=== PATIENT | male | born 1960 | race Caucasian/White ===

== ENCOUNTER 2020-10-20 19:34 | Inpatient (IN) | payer MEDICAID ==
[~2020-10-20] VITALS: Ht 172.7 cm; Wt 56.7 kg
[~2020-10-20 19:34] MED LIST: ALBU0.5N2 IN; ASPI1TAB19 PO; FLUT250M2 IN; TIOTCAP IN
[2020-10-20 20:33] LABS: Eosinophils # (auto) 0.1 10 ^3/uL (0-0.8); Hemoglobin 9.1 g/dL (13.5-17.5); White Blood Cell 9.5 10^3/uL (4.4-10.8)
[2020-10-20 20:35] LABS: Basophils # (auto) 0 10 ^3/uL (0-0.2); Basophils % (auto) 0.3 % (0.0-2.0); Eosinophils % (auto) 0.6 % (0.0-7.0); Hematocrit 25.8 % (41.0-53.0); Lymphocytes # (auto) 0.5 10 ^3/uL (0.4-5.4); Lymphocytes % (auto) 5.1 % (10.0-50.0); Mean Corpuscular Hemoglobin 35.9 pg (28.0-32.0); Mean Corpuscular Hgb Conc. 35.1 g/dL (32.0-36.0); Mean Corpuscular Volume 102.2 fL (80.0-100.0); Monocytes # (auto) 1.6 10 ^3/uL (0-1.3); Monocytes % (auto) 17.2 % (0.0-12.0); Neutrophils # (auto) 7.3 10 ^3/uL (1.6-8.6); Neutrophils % (auto) 76.8 % (37.0-80.0); Nucleated Red Blood Cells % 0.2 %; Red Blood Cells 2.53 10^6/uL (4.5-5.90); Red Cell Distribution Width 18.2 % (11.8-14.3)
[2020-10-20 20:49] LABS: Albumin 3.2 g/dL (3.4-5.0); Calcium 8.4 mg/dL (8.5-10.1)
[2020-10-20 20:51] LABS: INR 2.29 (0.9-1.15); Partial Thromboplastin Time 33.6 sec (23.0-31.2)
[2020-10-20 20:52] LABS: Bilirubin, Total 8.4 mg/dL (0.2-1.0); Total Protein 7.4 g/dL (6.4-8.2)
[2020-10-20 21:04] LABS: Potassium 2.1 mmol/L (3.5-5.1)
[2020-10-20] MEDS ORDERED: D5W/SOD CHL 0.9%/KCL 40MEQ 1,000 ML IV ONE (21:15)
[2020-10-20] MEDS ORDERED: POTASSIUM EFFERVESENT TAB 25 MEQ PO ONE ×2 (21:15→22:45)
[2020-10-20] MEDS ORDERED: IOHEXOL 350 MG/ML 100ML IJ ONE (21:24)
[2020-10-20] MEDS: POTASSIUM CHL 20MEQ/100ML 100 ML IV SCH (23:25)
[2020-10-21] VITALS (8 sets, daily range): BP systolic 96–117; BP diastolic 57–71
[2020-10-21] MEDS: POTASSIUM CHL 20MEQ/100ML 100 ML IV SCH (01:51)
[2020-10-21] MEDS ORDERED: MORPHINE SULF INJ 2 MG/ML SYRINGE 1ML IV PRN (02:45)
[2020-10-21] MEDS ORDERED: NITROGLYCERIN 0.4 MG SL TAB SL PRN (02:45)
[2020-10-21] MEDS ORDERED: ONDANSETRON HCL 4 MG/2 ML VIAL IV PRN (02:45)
[2020-10-21 03:00] LABS: Urine Bacteria NONE SEEN /hpf (None Seen); Urine Blood Negative /uL (Negative); Urine Specific Gravity 1.022 (1.001-1.035); Urine WBC 1 /hpf (0 - 3)
[2020-10-21 03:11] LABS: Calcium 7.7 mg/dL (8.5-10.1)
[2020-10-21 03:14] LABS: BUN/Creatinine Ratio 13.6
[2020-10-21 03:19] LABS: Potassium 2.8 mmol/L (3.5-5.1)
[2020-10-21] MEDS: PANTOPRAZOLE 40 MG TAB PO SCH (10:44)
[2020-10-21] MEDS: LACTULOSE 20Gm/30ML SOLN PO SCH (10:44)
[2020-10-21] MEDS ORDERED: ALBUTEROL SULF 2.5 MG/0.5ML(0.5%) NEB SOLN NEB PRN (13:45)
[2020-10-21] MEDS ORDERED: POTASSIUM EFFERVESENT TAB 25 MEQ PO ONE (13:45)
[2020-10-21] MEDS ORDERED: RIVAROXABAN 15 MG TAB PO SCH (14:30)
[2020-10-21] MEDS: RIVAROXABAN 20 MG TAB PO SCH (15:23)
[2020-10-21] MEDS ORDERED: ALBU108A5 IN (15:31)
[2020-10-21] MEDS: Glucerna Carbsteady SHAKE Chocolate 8oz PO SCH (17:56)
[2020-10-21] MEDS ORDERED: ASPI-498 PO (17:58)
[2020-10-21] MEDS ORDERED: Ensure HIGH Protein Chocolate 8oz Bottle PO SCH (18:00)
[2020-10-21 18:48] LABS: Hemoglobin 7.6 g/dL (13.5-17.5)
[2020-10-21 18:51] LABS: Hematocrit 21.7 % (41.0-53.0); Mean Corpuscular Hgb Conc. 35.2 g/dL (32.0-36.0); Red Blood Cells 2.13 10^6/uL (4.5-5.90); Red Cell Distribution Width 18.5 % (11.8-14.3); White Blood Cell 8.1 10^3/uL (4.4-10.8)
[2020-10-21 18:53] LABS: Basophils % (manual) 0 (0.0-2.0); Blast Cells 0; Metamyelocytes % 0; Myelocytes % 0; Promyelocytes % 0; Reactive Lymphocytes 0
[2020-10-21 19:04] LABS: BUN/Creatinine Ratio 8.2; Calcium 8.8 mg/dL (8.5-10.1); Potassium 3.2 mmol/L (3.5-5.1)
[2020-10-21 19:27] LABS: Band Neutrophils % (manual) 5; Eosinophils % (manual) 2 (0-7); Lymphocytes % (manual) 15 (10.0-50.0); Monocytes % (manual) 13 (0-12)
[2020-10-22 05:00] VITALS: BP 110/67
[2020-10-22] MEDS ORDERED: LOPERAMIDE HCL 2 MG CAP PO PRN (07:00)
[2020-10-22 07:22] LABS: Basophils # (auto) 0.1 10 ^3/uL (0-0.2); Eosinophils # (auto) 0.1 10 ^3/uL (0-0.8); White Blood Cell 7.5 10^3/uL (4.4-10.8)
[2020-10-22 07:25] LABS: Basophils % (auto) 1.8 % (0.0-2.0); Eosinophils % (auto) 1.9 % (0.0-7.0); Hematocrit 22.6 % (41.0-53.0); Hemoglobin 8.1 g/dL (13.5-17.5); Lymphocytes % (auto) 12.7 % (10.0-50.0); Mean Corpuscular Hemoglobin 36.8 pg (28.0-32.0); Mean Corpuscular Hgb Conc. 35.7 g/dL (32.0-36.0); Mean Corpuscular Volume 102.9 fL (80.0-100.0); Monocytes # (auto) 1.3 10 ^3/uL (0-1.3); Monocytes % (auto) 17.8 % (0.0-12.0); Neutrophils % (auto) 65.8 % (37.0-80.0); Nucleated Red Blood Cells % 0.3 %; Red Cell Distribution Width 18.8 % (11.8-14.3)
[2020-10-22 07:35] LABS: INR 3.23 (0.9-1.15)
[2020-10-22 07:48] LABS: Albumin 2.6 g/dL (3.4-5.0); BUN/Creatinine Ratio 10.7; Bilirubin, Total 7.9 mg/dL (0.2-1.0); Calcium 8.5 mg/dL (8.5-10.1); Total Protein 6.6 g/dL (6.4-8.2)
[2020-10-22 07:51] LABS: Potassium 2.7 mmol/L (3.5-5.1)
[2020-10-22] MEDS: Glucerna Carbsteady SHAKE Chocolate 8oz PO SCH ×3 (08:00→18:00)
[2020-10-22 09:01] VITALS: BP 97/55
[2020-10-22] MEDS: RIVAROXABAN 20 MG TAB PO SCH (09:41)
[2020-10-22] MEDS: PANTOPRAZOLE 40 MG TAB PO SCH (09:41)
[2020-10-22] MEDS: LACTULOSE 20Gm/30ML SOLN PO SCH (09:42)
[2020-10-22] MEDS ORDERED: POTASSIUM CHL 20 Meq TABLET PO ONE (11:00)
[2020-10-22] MEDS ORDERED: POTASSIUM EFFERVESENT TAB 25 MEQ PO ONE (11:00)
[2020-10-22 13:16] VITALS: BP 94/55
[2020-10-22 16:51] VITALS: BP 98/51
[2020-10-22 20:00] VITALS: BP 99/63
[2020-10-22 22:00] VITALS: BP 99/63
[2020-10-23 05:00] VITALS: BP 106/61
[2020-10-23] MEDS: Glucerna Carbsteady SHAKE Chocolate 8oz PO SCH ×3 (09:00→18:00)
[2020-10-23 09:13] LABS: Hepatitis B Surface Antibody Negative
[2020-10-23 09:18] LABS: Hepatitis B Surface Antibody Negative
[2020-10-23 09:28] VITALS: BP 97/52
[2020-10-23 09:41] LABS: Hepatitis A Total Antibody Negative
[2020-10-23] MEDS: LACTULOSE 20Gm/30ML SOLN PO SCH (10:00)
[2020-10-23 10:51] LABS: Hepatitis B Core Total AB Negative; Hepatitis B Surface Antigen Negative (Negative); Hepatitis C Antibody Negative (Negative)
[2020-10-23 10:52] LABS: Hepatitis B Surface Antigen Negative (Negative)
[2020-10-23 10:56] LABS: Calcium 9.1 mg/dL (8.5-10.1); Potassium 3.6 mmol/L (3.5-5.1)
[2020-10-23 10:58] LABS: BUN/Creatinine Ratio 8.9
[2020-10-23] MEDS: PANTOPRAZOLE 40 MG TAB PO SCH (13:33)
[2020-10-23 16:52] VITALS: BP 95/61
[2020-10-23 22:00] VITALS: BP 99/54
[2020-10-23] MEDS: metroNIDAZOLE 500 MG TAB PO SCH (22:49)
[2020-10-24] MEDS: VANCOMYCIN HCL 125MG/5ML ORAL SOL PO SCH ×5 (00:22→23:56)
[2020-10-24 05:00] VITALS: BP 98/55
[2020-10-24] MEDS: metroNIDAZOLE 500 MG TAB PO SCH ×3 (06:00→21:29)
[2020-10-24 06:41] LABS: Basophils # (auto) 0.1 10 ^3/uL (0-0.2); Eosinophils # (auto) 0.2 10 ^3/uL (0-0.8); Nucleated Red Blood Cells % 0.1 %; White Blood Cell 9.6 10^3/uL (4.4-10.8)
[2020-10-24 06:43] LABS: Basophils % (auto) 0.9 % (0.0-2.0); Eosinophils % (auto) 1.6 % (0.0-7.0); Hematocrit 21.5 % (41.0-53.0); Hemoglobin 7.7 g/dL (13.5-17.5); Lymphocytes % (auto) 10.9 % (10.0-50.0); Mean Corpuscular Volume 102.8 fL (80.0-100.0); Monocytes # (auto) 1.4 10 ^3/uL (0-1.3); Monocytes % (auto) 14.5 % (0.0-12.0); Neutrophils # (auto) 6.9 10 ^3/uL (1.6-8.6); Neutrophils % (auto) 72.1 % (37.0-80.0); Red Blood Cells 2.09 10^6/uL (4.5-5.90)
[2020-10-24 06:46] LABS: Red Cell Distribution Width 20.7 % (11.8-14.3)
[2020-10-24 07:03] LABS: INR 2.42 (0.9-1.15); Partial Thromboplastin Time 44.5 sec (23.0-31.2)
[2020-10-24 07:28] LABS: Potassium 3.7 mmol/L (3.5-5.1)
[2020-10-24 07:42] LABS: BUN/Creatinine Ratio 12.2; Calcium 8.6 mg/dL (8.5-10.1)
[2020-10-24] MEDS: Glucerna Carbsteady SHAKE Chocolate 8oz PO SCH ×3 (08:00→18:00)
[2020-10-24 09:00] VITALS: BP 114/51
[2020-10-24] MEDS ORDERED: LIDOCAINE 2%HCL (LOCAL ANESTH.) INJ 20ML MDV ONE (14:24)
[2020-10-24] MEDS ORDERED: IODIXANOL 320MG/ML 100ML BTL IV ONE (14:24)
[2020-10-24 16:58] VITALS: BP 98/60
[2020-10-24] MEDS: PANTOPRAZOLE 40 MG TAB PO SCH (18:20)
[2020-10-24 20:23] VITALS: BP 98/60
[2020-10-24 22:00] VITALS: BP 100/57
[2020-10-25 05:00] VITALS: BP 94/59
[2020-10-25] MEDS: VANCOMYCIN HCL 125MG/5ML ORAL SOL PO SCH ×4 (05:39→23:41)
[2020-10-25] MEDS: metroNIDAZOLE 500 MG TAB PO SCH ×3 (05:40→21:55)
[2020-10-25] MEDS: Glucerna Carbsteady SHAKE Chocolate 8oz PO SCH ×3 (08:30→17:51)
[2020-10-25 09:00] VITALS: BP 100/58
[2020-10-25] MEDS: PANTOPRAZOLE 40 MG TAB PO SCH (09:09)
[2020-10-25 12:26] LABS: Basophils # (auto) 0.1 10 ^3/uL (0-0.2); Basophils % (auto) 0.6 % (0.0-2.0); Eosinophils # (auto) 0.2 10 ^3/uL (0-0.8); Eosinophils % (auto) 1.3 % (0.0-7.0); Hemoglobin 8.1 g/dL (13.5-17.5); Lymphocytes # (auto) 1.2 10 ^3/uL (0.4-5.4); Lymphocytes % (auto) 9.9 % (10.0-50.0); Mean Corpuscular Hemoglobin 35.8 pg (28.0-32.0); Mean Corpuscular Hgb Conc. 33.8 g/dL (32.0-36.0); Mean Corpuscular Volume 105.7 fL (80.0-100.0); Monocytes # (auto) 1.5 10 ^3/uL (0-1.3); Monocytes % (auto) 12.6 % (0.0-12.0); Neutrophils # (auto) 9.2 10 ^3/uL (1.6-8.6); Neutrophils % (auto) 75.6 % (37.0-80.0); Nucleated Red Blood Cells % 0.1 %; Red Blood Cells 2.27 10^6/uL (4.5-5.90); Red Cell Distribution Width 22.4 % (11.8-14.3); White Blood Cell 12.2 10^3/uL (4.4-10.8)
[2020-10-25] MEDS ORDERED: PHYTONADIONE(VitK) ORAL Susp 10mg/10ml(1mg/ml) PO ONE (12:30)
[2020-10-25 12:54] LABS: BUN/Creatinine Ratio 13.5; Calcium 8.2 mg/dL (8.5-10.1)
[2020-10-25 13:00] VITALS: BP 107/65
[2020-10-25] MEDS ORDERED: POTASSIUM CHL 20 Meq TABLET PO ONE (15:00)
[2020-10-25 16:42] VITALS: BP 100/56
[2020-10-25 22:00] VITALS: BP 93/48
[2020-10-26 05:00] VITALS: BP 90/55
[2020-10-26] MEDS: VANCOMYCIN HCL 125MG/5ML ORAL SOL PO SCH ×4 (05:42→23:32)
[2020-10-26] MEDS: metroNIDAZOLE 500 MG TAB PO SCH ×3 (05:43→22:19)
[2020-10-26 07:01] LABS: Eosinophils # (auto) 0.1 10 ^3/uL (0-0.8)
[2020-10-26 07:04] LABS: Basophils # (auto) 0.2 10 ^3/uL (0-0.2); Basophils % (auto) 1.3 % (0.0-2.0); Eosinophils % (auto) 0.7 % (0.0-7.0); Hematocrit 23.7 % (41.0-53.0); Hemoglobin 8.4 g/dL (13.5-17.5); Lymphocytes # (auto) 2.3 10 ^3/uL (0.4-5.4); Lymphocytes % (auto) 18.7 % (10.0-50.0); Mean Corpuscular Hemoglobin 37.5 pg (28.0-32.0); Mean Corpuscular Hgb Conc. 35.5 g/dL (32.0-36.0); Mean Corpuscular Volume 105.7 fL (80.0-100.0); Monocytes # (auto) 1.5 10 ^3/uL (0-1.3); Monocytes % (auto) 11.8 % (0.0-12.0); Neutrophils # (auto) 8.4 10 ^3/uL (1.6-8.6); Neutrophils % (auto) 67.5 % (37.0-80.0); Nucleated Red Blood Cells % 0.1 %; Red Blood Cells 2.24 10^6/uL (4.5-5.90); White Blood Cell 12.4 10^3/uL (4.4-10.8)
[2020-10-26 07:20] LABS: BUN/Creatinine Ratio 12.5; Calcium 8.4 mg/dL (8.5-10.1)
[2020-10-26 07:30] LABS: Red Cell Distribution Width 22.3 % (11.8-14.3)
[2020-10-26] MEDS: Glucerna Carbsteady SHAKE Chocolate 8oz PO SCH ×3 (08:00→18:23)
[2020-10-26 09:00] VITALS: BP 101/62
[2020-10-26] MEDS: PANTOPRAZOLE 40 MG TAB PO SCH (10:00)
[2020-10-26 13:00] VITALS: BP 99/58
[2020-10-26] MEDS ORDERED: OMNIPAQUE ORAL SOLN 500ml 12mg/ml PO ONE (16:45)
[2020-10-26] MEDS ORDERED: IOHEXOL 300 MG/ML 100ML BOTTLE IJ ONE (16:46)
[2020-10-26 17:00] VITALS: BP 101/56
[2020-10-26 22:00] VITALS: BP 109/65
[2020-10-27 05:30] VITALS: BP 125/67
[2020-10-27 05:56] LABS: Hematocrit 19.2 % (41.0-53.0); Mean Corpuscular Hemoglobin 37.1 pg (28.0-32.0); Mean Corpuscular Hgb Conc. 35.3 g/dL (32.0-36.0); Mean Corpuscular Volume 105.1 fL (80.0-100.0); Red Blood Cells 1.83 10^6/uL (4.5-5.90)
[2020-10-27 06:13] LABS: Red Cell Distribution Width 22.1 % (11.8-14.3)
[2020-10-27 06:14] LABS: Hemoglobin 6.8 g/dL (13.5-17.5)
[2020-10-27 06:16] LABS: Basophils % (manual) 0 (0.0-2.0); Blast Cells 0; Eosinophils % (manual) 0 (0-7); Metamyelocytes % 0; Myelocytes % 0; Promyelocytes % 0; Reactive Lymphocytes 0
[2020-10-27] MEDS: metroNIDAZOLE 500 MG TAB PO SCH ×2 (06:45→13:29)
[2020-10-27] MEDS: VANCOMYCIN HCL 125MG/5ML ORAL SOL PO SCH ×2 (06:46→12:32)
[2020-10-27 07:06] LABS: Band Neutrophils % (manual) 28; Lymphocytes % (manual) 12 (10.0-50.0); Monocytes % (manual) 9 (0-12)
[2020-10-27] MEDS: Glucerna Carbsteady SHAKE Chocolate 8oz PO SCH ×2 (08:14→12:32)
[2020-10-27 09:00] VITALS: BP 105/65
[2020-10-27 10:35] VITALS: BP 98/59
[2020-10-27] MEDS: PANTOPRAZOLE 40 MG TAB PO SCH (10:37)
[2020-10-27 10:55] VITALS: BP 101/59
[2020-10-27 13:00] VITALS: BP 113/68
[2020-10-27 14:16] VITALS: BP 111/67
== END 2020-10-27 15:48 | disposition left against medical advice (07) | DRG 280 ==
LOC: ER 19:36 → TELE 10-21 02:40 → TELE-WESTW 10-21 05:16
PROVIDERS: ADMIT Nurse Practitioner; ATTEND Internal Medicine
PROC: 06H03DZ Insertion of Intraluminal Device into Inferior Vena Cava, Percutaneous Approach (ICD-10-PCS; 2020-10-24)
PROC: B51BYZZ Fluoroscopy of Right Lower Extremity Veins using Other Contrast (ICD-10-PCS; 2020-10-24)
PROC: 30233N1 Transfusion of Nonautologous Red Blood Cells into Peripheral Vein, Percutaneous Approach (ICD-10-PCS; principal; 2020-10-27)
DX: K70.30 Alcoholic cirrhosis of liver without ascites (principal); I85.11 Secondary esophageal varices with bleeding; A04.72 Enterocolitis due to Clostridium difficile, not specified as recurrent; I82.402 Acute embolism and thrombosis of unspecified deep veins of left lower extremity; E44.0 Moderate protein-calorie malnutrition; D68.9 Coagulation defect, unspecified; D69.6 Thrombocytopenia, unspecified; E87.1 Hypo-osmolality and hyponatremia; E87.6 Hypokalemia; Z20.822 Contact with and (suspected) exposure to COVID-19; D53.9 Nutritional anemia, unspecified; J44.9 Chronic obstructive pulmonary disease, unspecified; D63.8 Anemia in other chronic diseases classified elsewhere; F10.10 Alcohol abuse, uncomplicated; Z68.1 Body mass index [BMI] 19.9 or less, adult; Z79.01 Long term (current) use of anticoagulants; Z83.3 Family history of diabetes mellitus; Z86.711 Personal history of pulmonary embolism; Z86.718 Personal history of other venous thrombosis and embolism; Z91.14 Patient's other noncompliance with medication regimen; Z79.899 Other long term (current) drug therapy; Z79.891 Long term (current) use of opiate analgesic; Z91.19 Patient's noncompliance with other medical treatment and regimen; Z79.82 Long term (current) use of aspirin; Z87.891 Personal history of nicotine dependence; K72.90 Hepatic failure, unspecified without coma; D50.0 Iron deficiency anemia secondary to blood loss (chronic)
CPT/HCPCS: 36415; 70450; 71045; 71275; 74177; 76705; 80048; 80053; 81001; 82105; 82140; 82270; 82607; 82728; 83615; 83690; 83735; 83880; 84443; 84484; 85007; 85025; 85027; 85045; 85379; 85610; 85730; 86038; 86200; 86703; 86704; 86706; 86708; 86803; 86850; 86880; 86900; 86901; 86920; 87340; 87426; 87493; 93005; 93970; 96365; 96366; 97163; 99152; G0378; J3480; Q9967

== ENCOUNTER 2020-12-14 15:09 | Inpatient (IN) | payer MEDICAID ==
[~2020-12-14] VITALS: Ht 182.9 cm; Wt 64.6 kg
[2020-12-14] VITALS (12 sets, daily range): BP systolic 43–99; BP diastolic 19–45
[~2020-12-14 15:09] MED LIST changes: -ALBU0.5N2 IN; +ALBU108A5 IN; +ASPI-498 PO; -ASPI1TAB19 PO
[2020-12-14] MEDS ORDERED: ONDANSETRON HCL 4 MG/2 ML VIAL IV ONE (15:30)
[2020-12-14] MEDS ORDERED: PANTOPRAZOLE 40mg/50ML NS AE 50 ML IV ONE (15:30)
[2020-12-14] MEDS ORDERED: PANTOPRAZOLE 40 MG/10 ML VIAL INJ IV ONE (15:30)
[2020-12-14] MEDS ORDERED: FAMOTIDINE (10MG/ML) 2ML VL IV ONE (15:30)
[2020-12-14] MEDS ORDERED: SODIUM CHLORIDE 0.9% 1,000 ML IV ONE (15:30)
[2020-12-14 15:43] LABS: Basophils # (auto) 0.1 10 ^3/uL (0-0.2); Eosinophils # (auto) 0.1 10 ^3/uL (0-0.8); Lymphocytes # (auto) 1.1 10 ^3/uL (0.4-5.4); Lymphocytes % (auto) 9.2 % (10.0-50.0); Red Blood Cells 1.02 10^6/uL (4.5-5.90)
[2020-12-14 15:45] LABS: Basophils % (auto) 0.9 % (0.0-2.0); Eosinophils % (auto) 0.7 % (0.0-7.0); Hematocrit 13.8 % (41.0-53.0); Mean Corpuscular Hemoglobin 39.9 pg (28.0-32.0); Mean Corpuscular Hgb Conc. 29.6 g/dL (32.0-36.0); Mean Corpuscular Volume 134.9 fL (80.0-100.0); Monocytes # (auto) 0.8 10 ^3/uL (0-1.3); Monocytes % (auto) 6.8 % (0.0-12.0); Neutrophils # (auto) 10.2 10 ^3/uL (1.6-8.6); Neutrophils % (auto) 82.4 % (37.0-80.0); Nucleated Red Blood Cells % 0.4 %; Red Cell Distribution Width 19.4 % (11.8-14.3); White Blood Cell 12.4 10^3/uL (4.4-10.8)
[2020-12-14 16:03] LABS: Albumin 1.2 g/dL (3.4-5.0); Calcium 7.9 mg/dL (8.5-10.1); Potassium 4.4 mmol/L (3.5-5.1)
[2020-12-14 16:06] LABS: INR 3.05 (0.9-1.15)
[2020-12-14 16:07] LABS: Bilirubin, Total 8.2 mg/dL (0.2-1.0); Total Protein 4.4 g/dL (6.4-8.2)
[2020-12-14 16:21] LABS: Partial Thromboplastin Time 79.4 sec (23.6-33.0)
[2020-12-14] MEDS ORDERED: NOREPINEPHRINE 8 MG/250ML KIT 250 ML IV SCH (16:45)
[2020-12-14] MEDS ORDERED: ETOMIDATE (2MG/ML) 20ML VIAL IV ONE ×2 (16:48→17:00)
[2020-12-14] MEDS ORDERED: SUCCINYLCHOLINE CHLORIDE 20 MG/ML 10ML VIAL IV ONE ×2 (16:49→17:00)
[2020-12-14] MEDS ORDERED: MIDAZOLAM DRIP 50 mg/50mL 50 ML IV ONE (16:50)
[2020-12-14] MEDS: MIDAZOLAM DRIP 50 mg/50mL 50 ML IV SCH ×2 (16:57→20:30)
[2020-12-14] MEDS ORDERED: CALCIUM CHL 100MG/ML 2,000 MG in D5W 5% 100 ML IV ONE (17:00)
[2020-12-14] MEDS ORDERED: fentaNYL Drip 2500mCg/250mlNS 250 ML IV SCH (17:00)
[2020-12-14] MEDS ORDERED: SODIUM BICARBONATE 8.4 % INJ 50ML VIAL IV ONE (17:15)
[2020-12-14] MEDS ORDERED: MORPHINE SULFATE INJECTION 2 MG/ML SYRG IV PRN (18:15)
[2020-12-14] MEDS ORDERED: NITROGLYCERIN 0.4 MG SL TAB SL PRN (18:15)
[2020-12-14] MEDS ORDERED: phytonadione 10 MG in SODIUM CHL 0.9% 50 ML IV ONE (18:15)
[2020-12-14] MEDS ORDERED: OCTREOTIDE ACETATE 100 MCG in SODIUM CHL 0.9% 50 ML IV ONE (18:30)
[2020-12-14] MEDS ORDERED: SODIUM BICARBONATE 50ML VIAL 150 ML in D5W 5% 1,000 ML IV SCH (18:30)
[2020-12-14] MEDS ORDERED: ALBUTEROL SULF 2.5 MG/0.5ML(0.5%) NEB SOLN NEB PRN (18:30)
[2020-12-14] MEDS: DEXTROSE 5% IV SCH ×2 (18:37→18:38)
[2020-12-14] MEDS: CALCIUM CHLORIDE IV SCH ×2 (18:37→18:38)
[2020-12-14] MEDS: PHENYLEPHRINE IV 250 ML IV SCH ×3 (19:00→22:43)
[2020-12-14] MEDS: OCTREOTIDE ACETATE 500 MCG in SODIUM CHL 0.9% 99 ML IV SCH (19:29)
[2020-12-14 19:49] LABS: Urine Bacteria NONE SEEN /hpf (None Seen); Urine Blood 2+ /uL (Negative); Urine Hyaline Cast MANY /lpf (0 - 2); Urine Mucus FEW (None Seen); Urine Specific Gravity 1.024 (1.001-1.035); Urine WBC 7 /hpf (0 - 3)
[2020-12-14] MEDS ORDERED: VASOPRESSIN 20 UNIT/ML ONE (19:57)
[2020-12-14] MEDS ORDERED: VASOPRESSIN 50 UNITS in D5W 5% 247.5 ML IV SCH (20:00)
[2020-12-14] MEDS ORDERED: SODIUM CHLORIDE 0.9% 3,000 ML IV ONE (20:15)
[2020-12-14] MEDS ORDERED: ALBUMIN 25% 100 ML IV ONE (20:30)
[2020-12-14 21:49] LABS: Basophils # (auto) 0 10 ^3/uL (0-0.2); Basophils % (auto) 0.4 % (0.0-2.0); Eosinophils # (auto) 0 10 ^3/uL (0-0.8); Eosinophils % (auto) 0.5 % (0.0-7.0); Hematocrit 6.9 % (41.0-53.0); Lymphocytes # (auto) 0.6 10 ^3/uL (0.4-5.4); Lymphocytes % (auto) 10.8 % (10.0-50.0); Mean Corpuscular Hemoglobin 32.5 pg (28.0-32.0); Mean Corpuscular Hgb Conc. 30.4 g/dL (32.0-36.0); Mean Corpuscular Volume 106.7 fL (80.0-100.0); Monocytes # (auto) 0.6 10 ^3/uL (0-1.3); Monocytes % (auto) 9.7 % (0.0-12.0); Neutrophils # (auto) 4.5 10 ^3/uL (1.6-8.6); Neutrophils % (auto) 78.6 % (37.0-80.0); Nucleated Red Blood Cells % 0.9 %; Red Blood Cells 0.65 10^6/uL (4.5-5.90); White Blood Cell 5.7 10^3/uL (4.4-10.8)
[2020-12-14 21:51] LABS: Red Cell Distribution Width 20.1 % (11.8-14.3)
[2020-12-14 21:56] LABS: Calcium 7.2 mg/dL (8.5-10.1); Potassium 4.3 mmol/L (3.5-5.1)
[2020-12-14 21:57] LABS: Hemoglobin 2.1 g/dL (13.5-17.5)
[2020-12-14 21:59] LABS: Bilirubin, Total 2.7 mg/dL (0.2-1.0)
[2020-12-14] MEDS ORDERED: SODIUM BICARBONATE 8.4% INJ 50ML SYRINGE ONE (22:03)
[2020-12-14 22:05] LABS: Albumin 0.8 g/dL (3.4-5.0)
[2020-12-14] MEDS ORDERED: EPINEPHrine HCL 1 MG/10 ML SYRG ONE (22:26)
[2020-12-14] MEDS: PANTOPRAZOLE 40mg/50ML NS AE 50 ML IV SCH (23:00)
[2020-12-15] VITALS (23 sets, daily range): BP systolic 0–76; BP diastolic 0–48
[2020-12-15] MEDS ORDERED: ALBUTEROL SULF 2.5 MG/0.5ML(0.5%) NEB SOLN NEB SCH
[2020-12-15] MEDS ORDERED: IPRATROPIUM BROM 0.5 MG/2.5ML INH SOL NEB SCH
[2020-12-15] MEDS ORDERED: NOREPINEPHRINE BITARTRATE 2 ML IV ONE (01:07)
[2020-12-15] MEDS: PANTOPRAZOLE 40mg/50ML NS AE 50 ML IV SCH (03:30)
[2020-12-15 04:00] LABS: Hematocrit 14.6 % (41.0-53.0); Mean Corpuscular Hgb Conc. 29.6 g/dL (32.0-36.0); Red Blood Cells 1.35 10^6/uL (4.5-5.90); Red Cell Distribution Width 15.7 % (11.8-14.3)
[2020-12-15 04:09] LABS: Calcium 8.1 mg/dL (8.5-10.1); Potassium 5.2 mmol/L (3.5-5.1)
[2020-12-15 04:11] LABS: BUN/Creatinine Ratio 14.1
[2020-12-15 04:14] LABS: Bilirubin, Total 1.2 mg/dL (0.2-1.0); Total Protein 1.7 g/dL (6.4-8.2)
[2020-12-15 04:26] LABS: Albumin 0.6 g/dL (3.4-5.0); Hemoglobin 4.3 g/dL (13.5-17.5)
[2020-12-15 04:27] LABS: Basophils % (manual) 0 (0.0-2.0); Blast Cells 0; Eosinophils % (manual) 0 (0-7); Metamyelocytes % 0; Myelocytes % 0; Promyelocytes % 0; Reactive Lymphocytes 0
[2020-12-15] MEDS: OCTREOTIDE ACETATE 500 MCG in SODIUM CHL 0.9% 99 ML IV SCH (04:30)
[2020-12-15] MEDS ORDERED: EPINEPHrine HCL 250 ML IV ONE (05:56)
[2020-12-15 08:44] LABS: Band Neutrophils % (manual) 2; Lymphocytes % (manual) 41 (10.0-50.0); Monocytes % (manual) 7 (0-12)
[2020-12-15 08:59] LABS: Hemoglobin 4.1 g/dL (13.5-17.5)
[2020-12-15] MEDS ORDERED: NALOXONE HCL 1MG/ML 2ML SYRINGE IV ONE (13:02)
[2020-12-15] MEDS ORDERED: EPINEPHrine HCL 1 MG/10 ML SYRG IV ONE (13:02)
[2020-12-15] MEDS ORDERED: SODIUM BICARBONATE 8.4% INJ 50ML SYRINGE IV ONE (13:02)
[2020-12-15] MEDS ORDERED: CALCIUM CHLOR(10%) 100MG/ML 10ML SYRINGE IV ONE (13:02)
== END 2020-12-15 14:35 | DRG 253 ==
LOC: EDBD 15:09 → ER 15:09 → TELE 18:15 → ICU WEST 23:02
PROVIDERS: ADMIT Internal Medicine; ATTEND Internal Medicine
PROC: 5A1935Z Respiratory Ventilation, Less than 24 Consecutive Hours (ICD-10-PCS; 2020-12-14)
PROC: 0W3P8ZZ Control Bleeding in Gastrointestinal Tract, Via Natural or Artificial Opening Endoscopic (ICD-10-PCS; 2020-12-14)
PROC: 0BH17EZ Insertion of Endotracheal Airway into Trachea, Via Natural or Artificial Opening (ICD-10-PCS; 2020-12-14)
PROC: 30233N1 Transfusion of Nonautologous Red Blood Cells into Peripheral Vein, Percutaneous Approach (ICD-10-PCS; 2020-12-14)
PROC: 30233K1 Transfusion of Nonautologous Frozen Plasma into Peripheral Vein, Percutaneous Approach (ICD-10-PCS; 2020-12-14)
PROC: 5A12012 Performance of Cardiac Output, Single, Manual (ICD-10-PCS; principal; 2020-12-14 21:27)
PROC: 30233R1 Transfusion of Nonautologous Platelets into Peripheral Vein, Percutaneous Approach (ICD-10-PCS; 2020-12-15)
PROC: 05HY33Z Insertion of Infusion Device into Upper Vein, Percutaneous Approach (ICD-10-PCS; 2020-12-15)
DX: K92.2 Gastrointestinal hemorrhage, unspecified (principal); R57.1 Hypovolemic shock; I46.9 Cardiac arrest, cause unspecified; E43 Unspecified severe protein-calorie malnutrition; D68.9 Coagulation defect, unspecified; E87.2 Acidosis; K72.90 Hepatic failure, unspecified without coma; E83.51 Hypocalcemia; D62 Acute posthemorrhagic anemia; K76.6 Portal hypertension; K76.0 Fatty (change of) liver, not elsewhere classified; K70.30 Alcoholic cirrhosis of liver without ascites; E88.09 Other disorders of plasma-protein metabolism, not elsewhere classified; J44.9 Chronic obstructive pulmonary disease, unspecified; K31.9 Disease of stomach and duodenum, unspecified; Z20.822 Contact with and (suspected) exposure to COVID-19; F17.210 Nicotine dependence, cigarettes, uncomplicated; H54.7 Unspecified visual loss; I10 Essential (primary) hypertension; Z83.3 Family history of diabetes mellitus; Z86.711 Personal history of pulmonary embolism; Z86.718 Personal history of other venous thrombosis and embolism; Z86.19 Personal history of other infectious and parasitic diseases; Z68.1 Body mass index [BMI] 19.9 or less, adult
CPT/HCPCS: 31500; 36415; 36430; 36556; 36600; 43255; 71045; 80053; 81001; 82805; 83735; 85007; 85025; 85027; 85610; 85730; 86850; 86900; 86901; 86920; 87070; 87077; 87081; 87186; 87205; 87426; 92950; 93005; 94002; 96365; 96367; 99291; C9113; G0378; J0171; J0330; J2250; J3430; J7060; P9047